=== PATIENT | female | born 1960 | race Caucasian/White ===

== ENCOUNTER → 2018-05-27 07:16 | Outpatient (CLI) | payer MEDICARE, MEDICAID, SELFPAY ==
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
== END ==
PROVIDERS: Family Provider Family Medicine; PCP Family Medicine
DX: M54.12 Radiculopathy, cervical region (principal)
CPT/HCPCS: 95886; 95911

== ENCOUNTER → 2018-07-17 13:04 | Outpatient (CLI) | payer MEDICARE, MEDICAID, SELFPAY ==
--- NOTE | 2018-07-17 13:06 | CT_ITS ---
STUDY: CTA OF THE BRAIN REASON FOR EXAM: Female, 57 years old. FAM HX OF ANEURYSM, DIZZINESS AND FREQUENT FALLS RADIATION DOSAGE (If Supplied By Facility): CTDIvol = ( 28.04 ) mGy, DLP = ( 1156.6 ) mGycm TECHNIQUE: CT angiography was performed with a multi-detector CT scanner. Data acquisition was obtained from the skull base through the vertex following intravenous administration of 100 ml of Isovue-370. MIP images were reconstructed from the axial data set. Post-processing of the angiographic images was performed, with multiplanar reformation and 3D reconstruction. Individualized dose optimization techniques were used for this CT. COMPARISON: None. FINDINGS: Normal bilateral petrous carotid arteries. There is calcified plaque formation of the right cavernous carotid artery, without a cross-sectional luminal stenosis. There is calcified plaque formation of the left cavernous carotid artery, without a cross-sectional luminal stenosis. Normal right A1 segments of the anterior cerebral artery. Normal left A1 segments of the anterior cerebral artery. Normal intact anterior communicating artery (ACOM). Normal bilateral A2 segments of the anterior cerebral arteries. Normal right M1 and M2 segments of the middle cerebral arteries, with a normal M1 bifurcation. Normal left M1 and M2 segments of the middle cerebral arteries, with a normal M1 bifurcation. Normal right posterior communicating artery (PCOM). Normal left posterior communicating artery (PCOM). Normal bilateral vertebral arteries. Normal basilar artery with a normal basilar bifurcation. The visualized bilateral superior cerebellar (SCA) arteries are normal. Normal bilateral P1, P2 and visualized P3 segments of the posterior cerebral arteries. There is no demonstrated aneurysm of the [place] of [place]. There is no demonstrated abnormality of the visualized brain. CT/CTA Head W/WO Contrast IMPRESSION: There is calcified plaque formation of the right cavernous carotid artery, without a cross-sectional luminal stenosis. There is calcified plaque formation of the left cavernous carotid artery, without a cross-sectional luminal stenosis. No visualized aneurysm. Electronically Signed: Raj Horn MD at 17:37 EDT , Service support ,
== END ==
PROVIDERS: Family Provider Internal Medicine; PCP Internal Medicine; Referring Provider Internal Medicine Cardiovascular Disease; Visit Provider Internal Medicine Cardiovascular Disease
DX: Z82.49 Family history of ischemic heart disease and other diseases of the circulatory system (principal)
CPT/HCPCS: 70496; Q9967

== ENCOUNTER → 2018-07-23 08:34 | Outpatient (CLI) | payer MEDICARE, MEDICAID, SELFPAY ==
--- NOTE | 2018-07-23 08:36 | ECHOD_ITS ---
Reason For Study: CHEST PAIN Procedure This was a 2D Doppler, Color Flow transthoracic echocardiogram. Exam performed in department. Left Ventricle Normal size and thickness. The estimated ejection fraction is 65 %. Stage 1 diastolic dysfunction. No regional wall motion abnormalities noted. Right Ventricle Normal size and thickness. Normal systolic function. Atria Normal left atrium. Normal right atrium. Normal atrial septum. Mitral Valve The mitral valve is structurally normal. No prolapse or stenosis seen. Trivial mitral valve insufficiency. Tricuspid Valve Normal tricuspid valve. Trivial tricuspid valve insufficiency. Unable to estimate RV systolic pressure/pulmonary artery pressure due to technically difficult study. Aortic Valve Normal aortic valve. Trisinus/trileaflet aortic valve. Pulmonic Valve Normal pulmonic valve. Great Vessels Normal aortic root. Normal arch. Normal inferior vena cava. Inferior vena cava collapse with sniff. Pericardium/Pleural No pericardial effusion. MMode/2D Measurements & Calculations LVIDd: 4.4 cm IVSd: 0.81 cm LVOT diam: 2.0 cm LVIDs: 3.0 cm LVPWd: 0.81 cm LVOT area: 3.0 cm2 RVDd: 3.5 cm FS: 32.4 % Ao root diam: 3.2 cm LAV(MOD-bp): 40.6 ml LA A4 area: 14.7 cm2 LA dimension: 3.3 cm LAV(MOD-bp) Indexed: 21.3 ml/m2 LAV(MOD-sp2): 43.7 ml LAV(MOD-sp4): 34.6 ml RA A4 area: 10.7 cm2 Time Measurements MV dec time: 0.17 sec Doppler Measurements & Calculations MV E max geo: 73.7 cm/sec Lat Peak E' Geo: 13.3 cm/sec Med Peak E' Geo: 7.9 cm/sec MV A max geo: 85.0 cm/sec E/E' lat: 5.5 E/E' med: 9.3 MV E/A: 0.87 Ao V2 max: 122.5 cm/sec LV V1 max: 124.0 cm/sec PA V2 max: 109.6 cm/sec Ao max P.0 mmHg LV V1 max P.2 mmHg RHEA(V,D): 3.1 cm2 Interpretation Summary The estimated ejection fraction is 65 %. Stage 1 diastolic dysfunction. Trivial mitral valve insufficiency. Trivial tricuspid valve insufficiency. Unable to estimate RV systolic pressure/pulmonary artery pressure due to technically difficult study. Compared to echo report dated 03/07/2005, no appreciable changes noted. Ordering Physician: Jewel Castro Referring Physician: ASHWINI OSEI Performed By: Sunita Oviedo, TOYIN, RVT
== END ==
PROVIDERS: Family Provider Internal Medicine; PCP Internal Medicine; Referring Provider Internal Medicine Cardiovascular Disease; Visit Provider Internal Medicine Cardiovascular Disease
DX: R07.9 Chest pain, unspecified (principal)
CPT/HCPCS: 93306

== ENCOUNTER → 2018-07-29 08:44 | Outpatient (CLI) | payer MEDICARE, MEDICAID, SELFPAY | PROVIDERS: Family Provider Internal Medicine; PCP Internal Medicine; Referring Provider Internal Medicine Cardiovascular Disease; Visit Provider Internal Medicine Cardiovascular Disease | DX: R07.9 Chest pain, unspecified (principal); Z82.49 Family history of ischemic heart disease and other diseases of the circulatory system; I10 Essential (primary) hypertension; J44.9 Chronic obstructive pulmonary disease, unspecified | CPT/HCPCS: 93017; 93350; J7030; A4216 ==

== ENCOUNTER → 2019-03-24 | Outpatient (CLI) | payer MEDICARE, MEDICAID, SELFPAY ==
--- NOTE | 2019-03-24 12:17 | CDU_ITS ---
Reason For Study: Vertigo Rt. Velocities/BP Lt. Velocities/BP Prox CCA 124/38 cm/sec. Prox CCA 77/25 cm/sec. Mid CCA 81/25 cm/sec. Mid CCA 89/33 cm/sec. Dist CCA 83/27 cm/sec. Dist CCA 80/28 cm/sec. Prox ICA 119/43 cm/sec. Prox ICA 100/43 cm/sec. Mid ICA 117/42 cm/sec. Mid ICA 77/30 cm/sec. Dist ICA 94/40 cm/sec. Dist ICA 84/34 cm/sec. Rt. ICA/CCA = 1.5. Lt. ICA/CCA = 1.1. Prox ECA 148/38 cm/sec. Prox ECA 111/45 cm/sec. Rt. Vert. 23/9 cm/sec. Lt. Vert. 58/19 cm/sec. Right Extracranial There is heterogeneous, smooth atherosclerotic plaque noted in the right common carotid artery. There is heterogeneous, irregular atherosclerotic plaque noted in the right internal carotid artery. There is heterogeneous, irregular atherosclerotic plaque noted in the right external carotid artery. Antegrade flow is noted in the right vertebral artery. Left Extracranial There is heterogeneous, irregular atherosclerotic plaque noted in the left common carotid artery. There is heterogeneous, irregular atherosclerotic plaque noted in the left internal carotid artery. There is intimal thickening but no significant atherosclerotic plaque noted in the left external carotid artery. Antegrade flow is noted in the left vertebral artery. Procedure Carotid Duplex [id number]. Exam performed in department. Interpretation Summary Irregular calcific plague at the proximal right internal carotid with <50% stenosis <50% stenosis right external carotid Irregular calcific plague at the proximal left internal carotid with <50% stenosis. <50% stenosis left external carotid Patent and antegrade vertebrals bilaterally Ordering Physician: Jewel Castro Referring Physician: Rosalva Agarwal Performed By: Reemdios Márquez, TOYIN, RVT
[2019-03-24 13:50] LABS: T4 Total, Thyroxin 9.7 ug/dL (4.8-13.9)
== END | disposition home or self-care (01) ==
PROVIDERS: Family Provider Internal Medicine; PCP Internal Medicine; Referring Provider Internal Medicine Cardiovascular Disease; Visit Provider Internal Medicine Cardiovascular Disease
DX: I77.9 Disorder of arteries and arterioles, unspecified (principal); Z82.49 Family history of ischemic heart disease and other diseases of the circulatory system; E78.5 Hyperlipidemia, unspecified; R42 Dizziness and giddiness; L65.9 Nonscarring hair loss, unspecified; R53.83 Other fatigue; R63.5 Abnormal weight gain
CPT/HCPCS: 36415; 84436; 84443; 93880

== ENCOUNTER → 2019-09-03 09:43 | Outpatient (CLI) | payer MEDICARE, MEDICAID, SELFPAY ==
--- NOTE | 2019-09-03 09:46 | STE_ITS ---
Reason For Study: PREOP Stress Results Protocol: Dobutamine Stress Maximum Predicted HR: 162 bpm Target HR: 138 bpm % Maximum Predicted HR: 85 % DurationHeart Rate Stage (mm:ss) (bpm) BP Dose BASELINE 86 140/97 STAGE 1 3:11 85 151/8110.00 STAGE 2 3:00 114 154/8320.00 STAGE 3 2:53 137 162/7530.00 RECOVERY 96 149/76 Stress Duration: 9:04 mm:ss Maximum Stress HR: 137 bpm Baseline Echocardiogram Findings The estimated ejection fraction is 65 %. Stress Echo Wall motion Data Resting WM Intermediate WM Stress WM Resting Wall Motion Wall Motion Stress No regional wall motion No regional wall motion abnormalities noted. abnormalities noted. EKG Data The baseline ECG displays normal sinus rhythm. The patient was titrated from 10 mcg to a maximun of 30 mcg of dobutamine during the stress. The maximum heart rate attained was 137 beats per minute. This was 84% of maximum predicted heart rate. During dobutamine infusion, there were no ST or T wave changes noted to suggest ischemia. No clinical angina was noted. Interpretation Summary The estimated ejection fraction is 65 %. Normal, adequate, dobutamine echocardiogram. Negative for ischemia by EKG and echocardiographic criteria. No anginal symptoms noted. No arrhythmias noted. Test terminated due to the attainment of target heart rate. Final LVEF is 75%. Patient tolerated procedure well. No complications. Ordering Physician: Jewel Castro MD Referring Physician: Jewel Castro Performed By: Mary Meza RDCS
--- NOTE | 2019-09-03 09:50 | RAD_ITS ---
STUDY: X-RAY - PELVIS AND RIGHT HIP REASON FOR EXAM: Female, 58 years old. Right hip pain. TECHNIQUE: 3 views of the pelvis and hip. COMPARISON: None. FINDINGS: There is a non-specific bowel gas pattern. Normal visualized soft tissue structures. There is narrowing with cortical sclerosis and osteophyte formation of the sacroiliac joint consistent with degenerative osteoarthritic changes. Normal bilateral superior and inferior pubic rami. There are mild degenerative changes of the pubic symphysis with articular narrowing and sclerosis. Normal bilateral ischial tuberosities. Normal visualized femoral head. Normal acetabulum. Normal hip joint. RAD/HIP, UNI W/ Pelvis 2-3 Views IMPRESSION: Moderate degenerative disease as described above, otherwise unremarkable exam of the pelvis. Right hip within normal limits. No acute fracture. Electronically Signed: Bessy Menjivar MD at 1:06 EST , Service support ,
== END ==
PROVIDERS: Family Provider Internal Medicine; PCP Internal Medicine; Referring Provider Internal Medicine Cardiovascular Disease; Visit Provider Internal Medicine Cardiovascular Disease
DX: Z01.810 Encounter for preprocedural cardiovascular examination (principal); S73.101A Unspecified sprain of right hip, initial encounter; I77.9 Disorder of arteries and arterioles, unspecified; E78.5 Hyperlipidemia, unspecified; Z82.49 Family history of ischemic heart disease and other diseases of the circulatory system; R07.9 Chest pain, unspecified
CPT/HCPCS: 73502; 93017; 93350; J7040; Q9957; A4216

== ENCOUNTER → 2019-12-22 | Outpatient (CLI) | payer MEDICARE, MEDICAID, SELFPAY | END | disposition home or self-care (01) | LOC: LABSPEC 16:37 | PROVIDERS: PCP Internal Medicine; Referring Provider Otolaryngology Otolaryngology/Facial Plastic Surgery; Visit Provider Otolaryngology Otolaryngology/Facial Plastic Surgery | DX: J32.9 Chronic sinusitis, unspecified (principal) | CPT/HCPCS: 87070; 87077; 87186; 87205 ==

== ENCOUNTER → 2020-01-04 09:31 | Outpatient (CLI) | payer MEDICARE, MEDICAID, SELFPAY ==
--- NOTE | 2020-01-04 09:51 | MRI_ITS ---
STUDY: MRI RIGHT HIP REASON FOR EXAM: Right hip pain since July. TECHNIQUE: Standardized fat and water weighted pulse sequences were obtained in all 3 orthogonal planes. COMPARISON: Radiographs 09/03/2019. FINDINGS: Normal hip joint without articular joint space narrowing. Normal acetabulum. There is a tear of the right anterosuperior labrum (proton density sagittal images 14, 15). Normal femoral head. Normal femoral neck and intratrochanteric region. Normal gluteus minimus, medius and iliopsoas tendons and distal insertions. There is no trochanteric, iliopsoas or iliopectineal bursitis. Normal superior and inferior pubic rami. Normal pubic symphysis. Normal ischial tuberosity. There is mild peritendinitis of the origin of the hamstring tendons bilaterally (inversion recovery axial images 27-29). There is mild chondral thinning of the sacroiliac joints bilaterally with subchondral sclerosis and mild bone edema (inversion recovery axial images 11, 12). Normal visualized soft tissue structures of the pelvis. MRI/Lower Ext Joint Only (Routine) IMPRESSION: Tear of the right anterosuperior labrum. Mild bilateral sacroiliac arthrosis. Mild peritendinitis of the hamstring tendons. Electronically Signed: Vega Payne MD at 10:54 EDT Tel , Service support ,
== END ==
PROVIDERS: PCP Internal Medicine; Referring Provider Anesthesiology Pain Medicine; Visit Provider Anesthesiology Pain Medicine
DX: R10.31 Right lower quadrant pain (principal); M19.90 Unspecified osteoarthritis, unspecified site
CPT/HCPCS: 73721

== ENCOUNTER → 2021-03-13 | Outpatient (CLI) | payer MEDICARE, MEDICAID, SELFPAY | END | disposition home or self-care (01) | LOC: LABSPEC 15:26 | PROVIDERS: PCP Internal Medicine; Referring Provider Otolaryngology Otolaryngology/Facial Plastic Surgery; Visit Provider Otolaryngology Otolaryngology/Facial Plastic Surgery | DX: J32.9 Chronic sinusitis, unspecified (principal) | CPT/HCPCS: 87070; 87205 ==

== ENCOUNTER 2022-04-13 11:04 | Emergency (ER) | payer MEDICARE, MEDICAID, SELFPAY ==
[2022-04-13 11:05] VITALS: BP 163/110; PULSE 112; RESP 18; TEMP 36.6; O2SAT 100; BMI 28.1
--- NOTE | 2022-04-13 12:59 | EDS_ITS ---
HPI History of Present Illness Chief Complaint: Dental Informant: patient Narrative Narrative: Patient's had soreness in her anterior jaw for about a week. She has been on clindamycin for 5 days. She was initially getting better but then the swelling started to increase and she has a small bubble in her mouth now. No actual drainage. No fevers chills sweats. Patient reports an allergy to penicillin but she is not sure what the allergy is. She was told she had a reaction to it possibly a rash as a child. However, she has been on cephalexin and amoxicillin in the past with no known reaction. Nothing is making her dental pain specifically better or worse. [facility] Medical History Carotid artery disease Chest pain Chronic pain COPD (chronic obstructive pulmonary disease) Family history of ischemic heart disease Hyperlipidemia Hypertension Home Medications acyclovir 400 mg tablet 400 mg PO BID PRN 07/14/18 [History Last Taken Unknown] aspirin 81 mg tablet,delayed release (Adult Aspirin Regimen) 81 mg PO DAILY #90 tabs 07/14/18 [Rx Last Taken Unknown] citalopram 40 mg tablet 40 mg PO DAILY 07/14/18 [History Last Taken Unknown] cyclobenzaprine 10 mg tablet 10 mg PO TID 07/14/18 [History Last Taken Unknown] dextroamphetamine-amphetamine 20 mg tablet (Adderall) 20 mg PO DAILY 07/14/18 [History Last Taken Unknown] esomeprazole magnesium 40 mg capsule,delayed release (Nexium) 40 mg PO DAILY 07/14/18 [History Last Taken Unknown] fluticasone 250 mcg-salmeterol 50 mcg/dose blistr powdr for inhalation (Advair Diskus) 1 inh inhalation DAILY 07/14/18 [History Last Taken Unknown] fluticasone propionate 50 mcg/actuation nasal spray,suspension (Allergy Relief (fluticasone)) 1 spray intranasal DAILY 07/14/18 [History Last Taken Unknown] gabapentin 300 mg capsule 300 mg PO .qid 07/14/18 [History Last Taken Unknown] levothyroxine 75 mcg capsule 75 mcg PO DAILY 07/14/18 [History Last Taken Unknown] lisinopril 20 mg-hydrochlorothiazide 12.5 mg tablet 1 tab PO DAILY 07/14/18 [History Last Taken Unknown] montelukast 10 mg tablet (Singulair) 10 mg PO DAILY 07/14/18 [History Last Taken Unknown] omega-3 fatty acids 1,000 mg capsule 1,000 mg PO BID 07/14/18 [History Last Taken Unknown] oxycodone-acetaminophen 7.5 mg-325 mg tablet (Percocet) 1 tab PO Q4H PRN 07/14/18 [History Last Taken Unknown] trazodone 50 mg tablet 50 mg PO QHS PRN 07/14/18 [History Last Taken Unknown] atorvastatin 40 mg tablet 40 mg PO DAILY #90 tabs 09/15/19 [Rx Last Taken Unknown] amoxicillin 500 mg tablet 500 mg PO TID #30 tabs 04/13/22 [Rx Last Taken Unknown] Allergy/AdvReac Type Severity Reaction Status Date / Time penicillin G Allergy Severe rash Verified 04/13/22 11:06 Sulfa (Sulfonamide Allergy Severe rash Verified 04/13/22 11:06 Antibiotics) clarithromycin [From Biaxin] AdvReac Severe rash Verified 04/13/22 11:06 erythromycin base AdvReac Severe rash Verified 04/13/22 11:06 morphine AdvReac Severe Severe Verified 04/13/22 11:06 itching hydrocodone AdvReac Nausea/Vom/ Verified 04/13/22 11:07 Diarrhea Family History Mother , colon cancer, age 81 Atrial fibrillation Congestive heart failure Mitral valve disease Colon cancer Grandfather Diabetes Congestive heart failure Grandmother Congestive heart failure Father Brain aneurysm Brother S/P CABG x 4 CAD (coronary artery disease) Brother S/P CABG x 4 CAD (coronary artery disease) Surgical History History of hemorrhoidectomy Social History Smoking Status: Never smoker ROS ROS ED Constitutional Constitutional ED: Denies chills, fever(s), subjective or sweats ENT ENT ED: Reports other Details: See history of present illness Cardiovascular Cardiovascular: Denies chest pain Gastrointestinal Gastrointestinal: Denies nausea or vomiting Musculoskeletal Musculoskeletal: Denies arthralgias or myalgias Integumentary Denies rash Hematologic/Lymphatic Hematologic/Lymphatic: Denies easy bleeding or easy bruising Allergic/Immunologic Allergic/Immunologic ED: Denies tongue swelling EXAM Physical Exam Const Vital Signs: 04/13/22 11:05 Temperature 97.9 F Temperature Source Temporal Pulse Rate 112 H Respiratory Rate 18 Blood Pressure 163/110 H Blood Pressure Mean 127 Pulse Ox 100 Oxygen Delivery Method Room Air Positive well nourished General Appearance ED: NAD HEKELVIN HEENT Narrative: Patient has multiple poor teeth. There is some swelling of the gums above the left lateral incisor and premolar. There is a small abscess that is about 8 to 10 mm around above this. There is some very subtle facial swelling on the left but no erythema. Voice is normal. Eyes PERRL and EOMs intact bilaterally Eyes Narrative: No sinus tenderness. Neck no lymphadenopathy Neuro Sensorium / Orientation: alert Skin no rashes or lesions noted MDM MDM MDM Narrative Medical decision making narrative: We discussed options with the patient. She seems to be starting to worsen again after 5 days on antibiotics. Therefore, we will change antibiotics. Although she has an allergy to penicillin she has tolerated amoxicillin we will try this. Patient understands that she may need to stop this. We did discuss drainage. We sprayed the area with Cetacaine spray. I used a 21-gauge needle to incise right in the center of this purulent area. We got a good release of purulent material and decrease in pressure. I explained to the patient that she will have some continued drainage and bleeding from that but hopefully this will help. She is comfortable with the plan. Discharge Plan Triage Chief Complaint: Dental ED Provider: Juan Farmer Dx/Rx/DC Orders Clinical Impression: Abscess, dental Instructions: ED Tooth Abscess Prescriptions: New amoxicillin 500 mg tablet 500 mg PO TID Qty: 30 0RF No Action levothyroxine 75 mcg capsule 75 mcg capsule 75 mcg PO DAILY cyclobenzaprine 10 mg tablet 10 mg PO TID acyclovir 400 mg tablet 400 mg PO BID PRN citalopram 40 mg tablet 40 mg PO DAILY esomeprazole magnesium [Nexium] 40 mg capsule,delayed release(DR/EC) 40 mg PO DAILY lisinopril-hydrochlorothiazide 20-12.5 mg tablet 1 tab PO DAILY trazodone 50 mg tablet 50 mg PO QHS PRN oxycodone-acetaminophen [Percocet] 7.5-325 mg tablet 1 tab PO Q4H PRN gabapentin 300 mg capsule 300 mg PO .qid dextroamphetamine-amphetamine [Adderall] 20 mg tablet 20 mg PO DAILY Advair Diskus 250-50 mcg/dose blister with device 1 inh INHALATION DAILY fluticasone propionate [Allergy Relief (fluticasone)] 50 mcg/actuation spray,suspension 1 spray INTRANASAL DAILY montelukast [Singulair] 10 mg tablet 10 mg PO DAILY aspirin [Adult Aspirin Regimen] 81 mg tablet,delayed release (DR/EC) 81 mg PO DAILY Qty: 90 3RF omega-3 fatty acids 1,000 mg capsule 1,000 mg PO BID atorvastatin 40 mg tablet 40 mg PO DAILY Qty: 90 3RF Primary Care Provider: Inessa Freedman Referrals: Inessa Freedman MD [Primary Care Provider] - As Needed Activity Restrictions/Additional Instructions: See dentist as soon as possible. Disposition Disposition: Home, Self Care
== END 2022-04-13 13:22 | disposition home or self-care (01) ==
PROVIDERS: Emergency Provider Emergency Medicine; PCP Internal Medicine; Visit Provider Emergency Medicine
DX: K04.7 Periapical abscess without sinus (principal); J44.9 Chronic obstructive pulmonary disease, unspecified; I10 Essential (primary) hypertension; E78.5 Hyperlipidemia, unspecified; Z79.899 Other long term (current) drug therapy; Z79.82 Long term (current) use of aspirin
CPT/HCPCS: 41800; 99282

== ENCOUNTER 2022-06-10 11:57 | Emergency (ER) | payer MEDICARE, MEDICAID, SELFPAY ==
[2022-06-10 11:58] VITALS: BP 139/90; PULSE 120; RESP 16; TEMP 35.3; O2SAT 98; BMI 26.6
--- NOTE | 2022-06-10 12:28 | EX.ED.DYSGE1 ---
HPI History of Present Illness Chief Complaint: Abd Pain Informant: patient Onset/Context/Timing Onset: Days (6 days) Context: Gradual Onset Current Severity: Moderate Maximum Severity: Severe Narrative Narrative: Patient present secondary to epigastric abdominal pain with nausea and vomiting. Symptoms started last Friday. She was seen by her PCP and patient states lab work was ordered but she was too sick to go get it done. She continues to have nausea and vomiting and worsened epigastric pain. She does not have a thermometer at home but has felt hot and cold with chills. She has had prior cholecystectomy. [facility] Medical History Carotid artery disease Chest pain Chronic pain COPD (chronic obstructive pulmonary disease) Family history of ischemic heart disease Hyperlipidemia Hypertension Home Medications acyclovir 400 mg tablet 400 mg PO BID PRN 07/14/18 [History Last Taken Unknown] aspirin 81 mg tablet,delayed release (Adult Aspirin Regimen) 81 mg PO DAILY #90 tabs 07/14/18 [Rx Last Taken Unknown] citalopram 40 mg tablet 40 mg PO DAILY 07/14/18 [History Last Taken Unknown] cyclobenzaprine 10 mg tablet 10 mg PO TID 07/14/18 [History Last Taken Unknown] dextroamphetamine-amphetamine 20 mg tablet (Adderall) 20 mg PO DAILY 07/14/18 [History Last Taken Unknown] esomeprazole magnesium 40 mg capsule,delayed release (Nexium) 40 mg PO DAILY 07/14/18 [History Last Taken Unknown] fluticasone 250 mcg-salmeterol 50 mcg/dose blistr powdr for inhalation (Advair Diskus) 1 inh inhalation DAILY 07/14/18 [History Last Taken Unknown] fluticasone propionate 50 mcg/actuation nasal spray,suspension (Allergy Relief (fluticasone)) 1 spray intranasal DAILY 07/14/18 [History Last Taken Unknown] gabapentin 300 mg capsule 300 mg PO .qid 07/14/18 [History Last Taken Unknown] levothyroxine 75 mcg capsule 75 mcg PO DAILY 07/14/18 [History Last Taken Unknown] lisinopril 20 mg-hydrochlorothiazide 12.5 mg tablet 1 tab PO DAILY 07/14/18 [History Last Taken Unknown] montelukast 10 mg tablet (Singulair) 10 mg PO DAILY 07/14/18 [History Last Taken Unknown] omega-3 fatty acids 1,000 mg capsule 1,000 mg PO BID 07/14/18 [History Last Taken Unknown] oxycodone-acetaminophen 7.5 mg-325 mg tablet (Percocet) 1 tab PO Q4H PRN 07/14/18 [History Last Taken Unknown] trazodone 50 mg tablet 50 mg PO QHS PRN 07/14/18 [History Last Taken Unknown] atorvastatin 40 mg tablet 40 mg PO DAILY #90 tabs 09/15/19 [Rx Last Taken Unknown] amoxicillin 500 mg tablet 500 mg PO TID #30 tabs 04/13/22 [Rx Last Taken Unknown] fluconazole 150 mg tablet 150 mg PO QWEEK 2 doses #2 tabs 04/13/22 [Rx Last Taken Unknown] ondansetron 4 mg disintegrating tablet 4 mg PO Q8H PRN nausea and vomiting #10 tabs 06/10/22 [Rx Last Taken Unknown] sucralfate 1 gram tablet (Carafate) 1 g PO BID #20 tabs 06/10/22 [Rx Last Taken Unknown] Allergy/AdvReac Type Severity Reaction Status Date / Time penicillin G Allergy Severe rash Verified 06/10/22 12:00 Sulfa (Sulfonamide Allergy Severe rash Verified 06/10/22 12:00 Antibiotics) clarithromycin [From Biaxin] AdvReac Severe rash Verified 06/10/22 12:00 erythromycin base AdvReac Severe rash Verified 06/10/22 12:00 morphine AdvReac Severe Severe Verified 06/10/22 12:00 itching hydrocodone AdvReac Nausea/Vom/ Verified 06/10/22 12:00 Diarrhea Family History Mother , colon cancer, age 81 Atrial fibrillation Congestive heart failure Mitral valve disease Colon cancer Grandfather Diabetes Congestive heart failure Grandmother Congestive heart failure Father Brain aneurysm Brother S/P CABG x 4 CAD (coronary artery disease) Brother S/P CABG x 4 CAD (coronary artery disease) Surgical History History of hemorrhoidectomy Social History Smoking Status: Never smoker ROS ROS ED Constitutional Constitutional ED: Denies chills or fever(s) Eyes Eyes: Denies change in vision or discharge from eye(s) ENT ENT ED: Denies discharge from eye(s), rhinorrhea or sore throat Cardiovascular Cardiovascular: Denies chest pain or palpitations Respiratory/Chest Respiratory/Chest: Denies cough or dyspnea Gastrointestinal Gastrointestinal: Reports abdominal pain, nausea and vomiting; Denies diarrhea Genitourinary Genitourinary ED: Denies difficulty urinating or dysuria Musculoskeletal Musculoskeletal: Reports back pain; Denies extremity pain Integumentary Denies Abrasions or rash Neurologic Neurologic: Denies headache(s) or weakness Psychiatric Psychiatric: Reports anxiety Allergic/Immunologic Allergic/Immunologic ED: Denies lip swelling or urticaria EXAM Physical Exam Const Vital Signs: 06/10/22 11:58 06/10/22 15:34 Temperature 95.6 F L Temperature Source Temporal Pulse Rate 120 H 93 Respiratory Rate 16 Blood Pressure 139/90 H Blood Pressure Mean 106 Pulse Ox 98 Oxygen Delivery Method Room Air Positive well nourished and well developed General Appearance ED: well developed HEENT Reports normocephalic and head/scalp atraumatic Eyes PERRL and EOMs intact bilaterally Neck supple Chest Wall inspection of chest normal and palpation of chest normal Resp normal respiratory effort and clear to auscultation bilaterally Cardio regular rhythm Rate: tachycardic GI Auscultation: hypoactive bowel sounds Palpation: soft and tender epigastric; Negative for guarding or rebound tenderness present Extremity normal to inspection Neuro oriented x3 and no sensory deficits noted Sensorium / Orientation: alert Motor Exam: strength 5/5 throughout Psych mental status grossly normal Skin no rashes or lesions noted MDM MDM MDM Narrative Medical decision making narrative: Patient initially given a dose of fentanyl and Zofran. Lab work obtained. Lab Data Attestation: I reviewed the patient's lab results. Labs: Laboratory Results - last 24 hr 06/10/22 06/10/22 13:10 13:10 WBC 6.4 RBC 4.88 Hgb 15.2 H Hct 43.7 MCV 89.5 MCH 31.1 MCHC 34.8 RDW Std Deviation 39.1 RDW Coeff of Lian 11.9 Plt Count 246 MPV 9.3 Immature Gran % (Auto) 0.200 Neut % (Auto) 70.0 Lymph % (Auto) 20.9 [place] % (Auto) 7.2 Eos % (Auto) 1.2 Baso % (Auto) 0.5 Absolute Neuts (auto) 4.5 Absolute Lymphs (auto) 1.34 Nucleated RBC % 0 Sodium 136 Potassium 3.6 Chloride 99 Carbon Dioxide 32.0 Anion Gap 5 BUN 14 Creatinine 0.83 Estim Creat Clear Calc 64.05 Est GFR (MDRD) Af Amer 89 Est GFR (MDRD) Non-Af 74 BUN/Creatinine Ratio 16.8 Glucose 97 Calcium 9.9 Total Bilirubin 0.70 Direct Bilirubin 0.21 AST 17 ALT 26 Alkaline Phosphatase 96 Total Protein 8.1 Albumin 4.1 Globulin 4.0 Lipase 130 Radiography Diagnostic Testing: Clinical Impression(s) from Imaging Studies Abdomen/Pelvis CT 06/10/22 14:25 IMPRESSION: Status post cholecystectomy. Small right renal cyst. Scattered sigmoid diverticula. Prior cholecystectomy. Electronically Signed: Nam Pool MD at 15:09 EDT , Treatment and Re-Evaluation Narrative: Due to continued pain patient given dose of Protonix. Because she is driving she was not redosed with fentanyl. CT scan of the abdomen and pelvis obtained. Patient's lab work is unremarkable with normal white count. Hemoglobin slightly concentrated at 15.2. Chemistry studies LFTs and lipase all normal. CT scan of the abdomen and pelvis with IV contrast reveals no acute findings. Test results discussed with the patient. Repeat heart rate is now 93. She does report being under tremendous stress recently and I am concerned that she may have an ulcer. She will be treated with Carafate and Zofran. She will continue her Nexium. She was referred to GI for follow-up. Discharge Plan Triage Chief Complaint: Abd Pain ED Provider: Loree Akers Dx/Rx/DC Orders Clinical Impression: Epigastric pain Instructions: ED Epigastric Pain Uncertain Cause Prescriptions: New ondansetron 4 mg tablet,disintegrating 4 mg PO Q8H PRN (Reason: nausea and vomiting) Qty: 10 0RF sucralfate [Carafate] 1 gram tablet 1 g PO BID Qty: 20 0RF No Action levothyroxine 75 mcg capsule 75 mcg capsule 75 mcg PO DAILY cyclobenzaprine 10 mg tablet 10 mg PO TID acyclovir 400 mg tablet 400 mg PO BID PRN citalopram 40 mg tablet 40 mg PO DAILY esomeprazole magnesium [Nexium] 40 mg capsule,delayed release(DR/EC) 40 mg PO DAILY lisinopril-hydrochlorothiazide 20-12.5 mg tablet 1 tab PO DAILY trazodone 50 mg tablet 50 mg PO QHS PRN oxycodone-acetaminophen [Percocet] 7.5-325 mg tablet 1 tab PO Q4H PRN gabapentin 300 mg capsule 300 mg PO .qid dextroamphetamine-amphetamine [Adderall] 20 mg tablet 20 mg PO DAILY Advair Diskus 250-50 mcg/dose blister with device 1 inh INHALATION DAILY fluticasone propionate [Allergy Relief (fluticasone)] 50 mcg/actuation spray,suspension 1 spray INTRANASAL DAILY montelukast [Singulair] 10 mg tablet 10 mg PO DAILY aspirin [Adult Aspirin Regimen] 81 mg tablet,delayed release (DR/EC) 81 mg PO DAILY Qty: 90 3RF omega-3 fatty acids 1,000 mg capsule 1,000 mg PO BID amoxicillin 500 mg tablet 500 mg PO TID Qty: 30 0RF fluconazole 150 mg tablet 150 mg PO QWEEK Qty: 2 0RF atorvastatin 40 mg tablet 40 mg PO DAILY Qty: 90 3RF Primary Care Provider: Inessa Freedman Referrals: Inessa Freedman MD [Primary Care Provider] - Azar Espinoza DO [Med Staff - Active Staff] - As soon as possible Disposition Disposition: Home, Self Care
[2022-06-10] MEDS: fentaNYL 100 MCG/2 ML Ampul 25 MCG IV (13:12)
[2022-06-10] MEDS: Ondansetron 4 MG/2 ML Vial IV (13:12)
[2022-06-10] MEDS: 0.9% Normal Saline 1,000 ML 1000 ML IV (13:13)
[2022-06-10 13:22] LABS: Absolute Lymphocyte Count 1.34 X10^3/uL (0.83-4.51); Absolute Neutrophil Count 4.5 X10^3/uL (2.0-7.7); Basophil# 0.03 X10^3/uL; Basophil% 0.5 % (0-1); Eosinophil# 0.08 X10^3/uL; Eosinophils% 1.2 % (0-5); Hematocrit 43.7 % (37-47); Hemoglobin 15.2 g/dL (12.0-15.0); Lymphocyte # 1.34 X10^3/ul (0.83-4.51); Lymphocyte % 20.9 % (19-41); Mean Corp Hgb Conc 34.8 g/dL (32-36); Mean Corpuscular Hgb 31.1 pg (27.0-32.0); Mean Corpuscular Volume 89.5 fL (81-99); Mean Platelet Vol. 9.3 fl (6.2-12.0); Monocyte# 0.46 X10^3/uL; Monocyte% 7.2 % (0-10); NRBC Flagged by Analyzer 0 % (0-5); Neutrophil # 4.49 X10^3/uL (2.7-7.7); Platelet Count 246 K/mm3 (150-450); RBC Distribution Width CV 11.9 % (11.6-14.6); RBC Distribution Width SD 39.1 fl (35.1-43.9); Red Blood Count 4.88 M/mm3 (4.2-5.4); White Blood Count 6.4 K/mm3 (4.4-11.0)
[2022-06-10 13:38] LABS: AST(SGOT) 17 U/L (15-37); Alanine Aminotransfer ALT/SGPT 26 U/L (13-56); Albumin, Serum 4.1 g/dL (3.2-5.0); Alkaline Phosphatase 96 U/L (45-117); Anion Gap 5 (5-15); BUN 14 mg/dL (7-18); BUN/Creat Ratio 16.8 RATIO (10-20); Bilirubin, Direct 0.21 mg/dL (0.00-0.30); Calcium,Total 9.9 mg/dL (8.5-10.1); Chloride 99 mmol/L (98-107); Creatinine, Serum 0.83 mg/dL (0.55-1.02); EST Glomerular Filtration Rate 74 mL/min (>60); Est Glom Filt Rate - Afr Amer 89 mL/min (>60); Estimated Creatinine Clearance 64.05 ml/min; Glucose 97 mg/dL (74-106); Lipase 130 U/L (73-393); Potassium 3.6 mmol/L (3.5-5.1); Protein, Total 8.1 g/dL (6.4-8.2); Sodium Level 136 mmol/L (136-145)
--- NOTE | 2022-06-10 14:25 | CT_ITS ---
STUDY: CT ABDOMEN AND PELVIS WITH CONTRAST REASON FOR EXAM: Female, 61 years old. Epigastric pain since last Friday. RADIATION DOSAGE (If Supplied By Facility): CTDIvol = ( 9.08 ) mGy, DLP = ( 398.51 ) mGycm TECHNIQUE: Transaxial images were obtained from the dome of the diaphragm to the symphysis pubis without oral contrast. IV 100mL Isovue-300 was administered. Sagittal and coronal images were reconstructed. Individualized dose optimization techniques were used for this CT. COMPARISON: None. FINDINGS: The visualized lung bases are unremarkable. The visualized portions of the heart are within normal limits. Normal liver. The patient is status post cholecystectomy. Normal spleen. Normal pancreas. Normal bilateral adrenal glands. There is a 1.3 cm cyst in the upper midportion of the right kidney. Normal left kidney. Normal visualized stomach. Normal small intestine. There are scattered colonic diverticula consistent with diverticulosis. The appendix is visualized and appears normal. There is scattered atherosclerotic calcification of the abdominal aorta, without a demonstrated aneurysm. Normal inferior vena cava. Normal retroperitoneum. Normal urinary bladder. Normal abdominal wall. Marked degree of disc space narrowing and subchondral sclerosis and spondylosis at the L3-L4 level. Minimal anterior listhesis of L3 on L4 due to spondylolysis of the pars interarticularis of the L3 vertebrae. CT/Abdomen/Pelvis W IV Cont ONLY IMPRESSION: Status post cholecystectomy. Small right renal cyst. Scattered sigmoid diverticula. Prior cholecystectomy. Electronically Signed: Nam Pool MD at 15:09 EDT ,
[2022-06-10] MEDS: 0.9% Normal Saline 1,000 ML 150 ML IV (15:01)
[2022-06-10 15:34] VITALS: PULSE 93
[2022-06-10 15:37] VITALS: RESP 18
== END 2022-06-10 15:49 | disposition home or self-care (01) ==
PROVIDERS: Emergency Provider Emergency Medicine; PCP Internal Medicine; Visit Provider Emergency Medicine
DX: R10.13 Epigastric pain (principal); J44.9 Chronic obstructive pulmonary disease, unspecified; R11.2 Nausea with vomiting, unspecified; I10 Essential (primary) hypertension; E78.5 Hyperlipidemia, unspecified; I65.29 Occlusion and stenosis of unspecified carotid artery; Z79.82 Long term (current) use of aspirin; Z79.899 Other long term (current) drug therapy; Z90.49 Acquired absence of other specified parts of digestive tract
CPT/HCPCS: 74177; 80048; 80076; 83690; 85025; 87811; 96361; 96365; 96375; 99284; J7030; Q9967; A4216; J2405